=== PATIENT | male | born 1955 | race Caucasian/White ===

== ENCOUNTER 2020-07-19 06:37 | Day surgery (SDC) | payer BC ==
[2020-07-18 14:41] VITALS: BP 143/76
[2020-07-19] VITALS (18 sets, daily range): BP systolic 116–135; BP diastolic 68–88
[~2020-07-19] VITALS: Ht 171.4 cm; Wt 84.5 kg
[~2020-07-19 06:37] MED LIST: CEFTRIAXONE SODIUM 1 GM IVP SCH
[2020-07-19] MEDS ORDERED: CARV3.12 PO (08:19)
[2020-07-19] MEDS ORDERED: VIT D3 PO (08:19)
[2020-07-19] MEDS ORDERED: ZINC50TA64 PO (08:19)
[2020-07-19] MEDS ORDERED: GABA-529 PO (08:19)
[2020-07-19] MEDS ORDERED: SIMV-43 PO (08:19)
[2020-07-19] MEDS ORDERED: MULTIVITAMIN 50+ PO (08:19)
[2020-07-19] MEDS ORDERED: FINA5TAB41 PO (08:19)
[2020-07-19] MEDS ORDERED: OMEP20TA25 PO (08:19)
[2020-07-19] MEDS ORDERED: TAMS-1 PO (08:19)
[2020-07-19] MEDS ORDERED: UBID100C10 PO (08:19)
[2020-07-19] MEDS ORDERED: AEC81 PO (08:19)
[2020-07-19] MEDS ORDERED: LEVO50TA11 PO (08:19)
[2020-07-19] MEDS ORDERED: ASCO-360 PO (08:19)
[2020-07-19] MEDS ORDERED: VITAMIN E PO (08:19)
[2020-07-19] MEDS ORDERED: DEXAMETHASONE SOD PHOSPHATE 10MG/ML 1ML VIAL ONE (09:13)
[2020-07-19] MEDS ORDERED: MIDAZOLAM HCL 1 MG/ML 2ML VIAL ONE (09:13)
[2020-07-19] MEDS ORDERED: ONDANSETRON HCL 4 MG/2 ML VIAL ONE (09:13)
[2020-07-19] MEDS ORDERED: LIDOCAINE PF 2% 5ML ABBOJECT ONE (09:13)
[2020-07-19] MEDS ORDERED: SUCCINYLCHOLINE 200MG/10ML SYR ONE (09:13)
[2020-07-19] MEDS ORDERED: PROPOFOL 10 MG/ML 20ML VIAL IV ONE (09:14)
[2020-07-19] MEDS ORDERED: NEOSTIGMINE 5MG/5ML SYR IV ONE (09:14)
[2020-07-19] MEDS ORDERED: GLYCOPYRROLATE 1 MG/5 ML SYRINGE ONE (09:14)
[2020-07-19] MEDS ORDERED: ROCURONIUM 10MG/1ML SYR 10 MG/ML ML ONE (09:14)
[2020-07-19] MEDS ORDERED: FENTANYL CITRATE PF 50 MCG/1 ML 2ML VIAL ONE (09:14)
[2020-07-19] MEDS ORDERED: LACTATED RINGERS 1000ML 1,000 ML IV ONE (09:24)
[2020-07-19] MEDS ORDERED: PHENYLEPHRINE HCL 10 MG/ML 1ML VIAL IV ONE (09:56)
[2020-07-19] MEDS ORDERED: OPIUM/BELLADONNA ALKALOIDS 1 EACH SUPP.RECT RC ONE (10:01)
[2020-07-19] MEDS ORDERED: MEPERIDINE-PF 25 MG/ML SYG ONE (10:20)
[2020-07-19] MEDS ORDERED: PHENAZOPYRIDINE HCL 200 MG TABLET ONE (12:26)
== END 2020-07-19 12:40 | disposition home or self-care (01) ==
LOC: DAH 06:37
PROVIDERS: ATTEND Urology
DX: N40.1 Benign prostatic hyperplasia with lower urinary tract symptoms (principal); R39.14 Feeling of incomplete bladder emptying; I10 Essential (primary) hypertension; K21.9 Gastro-esophageal reflux disease without esophagitis; E03.9 Hypothyroidism, unspecified; Z79.899 Other long term (current) drug therapy; Z88.8 Allergy status to other drugs, medicaments and biological substances; Z20.828 Contact with and (suspected) exposure to other viral communicable diseases
CPT/HCPCS: 52648; A4215; A4221; A4222; A4223; A4340; A4358; A4510; A4600; A4649; A4663; A5113; C1769; C9803; J0330; J0696; J1100; J2001; J2175; J2250; J2370; J2405; J2704; J2710; J3010; J3490; J7030; J7120 ×2; U0003